=== PATIENT | female | born 2000 | race African-American/Black ===

== ENCOUNTER 2024-11-27 12:17 | Outpatient (CLI) | payer OTHER, SELFPAY ==
[2024-11-27 12:30] VITALS: BMI 36.7
[2024-11-27 12:31] VITALS: BP 126/79; PULSE 100
[2024-11-27 12:43] LABS: Glucose Urine UA Negative (Normal); Nitrate Urine Negative (Negative); Specific Gravity, Urine 1.015 (1.005-1.030)
[2024-11-27 12:48] LABS: Add Urine Microscopic? YES
[2024-11-27 12:49] LABS: Hematocrit 37.8 % (36-47); Hemoglobin 12.50 g/dL (11.27-16.99); Mean Corpuscular HGB Conc 33.1 g/dL (30-55); Mean Corpuscular Hemoglobin 27.5 pg (27-33); Mean Corpuscular Volume 83.3 fl (85-98); Nucleated Red Blood Cells % 0 %; Platelet Count 278 10^3/cmm (157-399); Red Blood Count 4.54 10^6/uL (3.85-5.65); White Blood Count 9.69 10^3/uL (3.29-11.43)
[2024-11-27 12:51] VITALS: BP 117/77; PULSE 79
[2024-11-27 13:01] LABS: UPRO/UCREAT Ratio 0.13 mg/mg CR
[2024-11-27 13:08] LABS: Alanine Aminotransferase 10 U/L (0-33); Albumin Level 3.3 g/dL (3.5-5.2); Alkaline Phosphatase 209 U/L (35-105); Anion Gap 15.8 (5-19); Aspartate Amino Transferase 15 U/L (0-32); Blood Urea Nitrogen 4 mg/dL (6-20); Calcium 9.0 mg/dL (8.5-10.5); Carbon Dioxide 21 mmol/L (22-29); Chloride 102 mmol/L (98-107); Globulin 3.5 g/dL (1.3-4.6); Glucose 104 mg/dL (65-115); Osmolality Calculated 277 mOsm/kg (285-295); Potassium 3.8 mmol/L (3.5-5.1); Sodium 135 mmol/L (136-145); Total Protein 6.8 g/dL (6.6-8.7); Uric Acid 3.9 mg/dL (2.4-5.7)
[2024-11-27 13:11] VITALS: BP 121/73; PULSE 81
[2024-11-27 13:20] VITALS: BP 121/73; PULSE 81; RESP 15
== END 2024-11-27 13:25 | disposition home or self-care (01) ==
LOC: OPOB 12:21 → OBGYN 12:22
PROVIDERS: Visit Provider Family Medicine
DX: O13.9 Gestational [pregnancy-induced] hypertension without significant proteinuria, unspecified trimester (principal); Z3A.00 Weeks of gestation of pregnancy not specified
CPT/HCPCS: 59025; 80053; 81001; 82570; 84156; 84550; 85025; 99211

== ENCOUNTER 2024-12-16 05:49 | Inpatient (IN) | payer OTHER, MEDICAID, SELFPAY ==
[2024-12-16] VITALS (82 sets, daily range): BP systolic 75–169; BP diastolic 42–118; PULSE 52–123; RESP 16; TEMP 36.7–37.3; O2SAT 97–100; BMI 37.6
[2024-12-16] MEDS: ampicillin 2,000 MG in sodium chloride 0.9% (plus) 50 ML 100 MG IV (06:08)
[2024-12-16] MEDS: ondansetron 2 mg/ML SDV 2 mL 4 MG IVP ×2 (06:18→13:49)
[2024-12-16 06:25] LABS: Hematocrit 40.1 % (36-47); Hemoglobin 13.50 g/dL (11.27-16.99); Mean Corpuscular HGB Conc 33.7 g/dL (30-55); Mean Corpuscular Hemoglobin 27.9 pg (27-33); Mean Corpuscular Volume 82.9 fl (85-98); Nucleated Red Blood Cells % 0 %; Platelet Count 285 10^3/cmm (157-399); Red Blood Count 4.84 10^6/uL (3.85-5.65); White Blood Count 12.44 10^3/uL (3.29-11.43)
--- NOTE | 2024-12-16 07:00 | ANES.PREANE2 ---
Pre-Anesthetic Assessment Height/Weight: Height 1.55 m Weight 90.407 kg Pulse BP Pulse Ox O2 Del Method 76 157/78 100 Room Air 12/16/24 07:11 12/16/24 07:11 12/16/24 07:09 12/16/24 06:25 Preop Diagnosis: labor pain epidural Familial anesthetic complications: none Was Beta Kristin taken within 24 hours: N/A Was Clonidine taken within 24 hours: N/A Social No alcohol and No tobacco Exam alert and oriented x 3 Airway Submandibular: within normal limits Cervical ROM: within normal limits Mallampati: Class II Dentition: full History/ROS No significant history except as noted Anesthetic Plan ASA status: 2 Anesthesia: Anesthesia Evaluation and Regional (specify below) Risk of > 500 ml blood loss (7ml/kg in children): Yes, adequate IV access and fluids planned Medications/Allergies Home Medications ?Medication ?Instructions ?Recorded ?Confirmed ?Last Taken ?Type 1 active tab PO 1XD 11/27/24 12/16/24 12/15/24 History Allergies Allergy/AdvReac Type Severity Reaction Status Date / Time pecan nut Allergy ALGY-Swell Verified 12/16/24 06:36 Lip/Tongue/Throat Current Medications Generic Name Dose Route Start Last Admin Trade Name Freq PRN Reason Stop Dose Admin Lactated Ringer's 1,000 mls @ 999 mls/hr 12/16/24 05:54 12/16/24 06:08 Lactated Ringers IV 999 mls/hr .Q1H1M PRN Administration See label comments Ondansetron HCl 4 mg 12/16/24 05:49 12/16/24 06:18 Ondansetron 2 Mg/Ml Sdv 2 Ml IVP 4 mg Q4H PRN Administration NAUSEA AND VOMITING Data Anesthesia 12/16/24 06:11 Short CBC 12/16/24 Range/Units 06:11 WBC 12.44 H (3.29-11.43) 10^3/uL Hgb 13.50 (11.27-16.99) g/dL Hct 40.1 (36-47) % MCV 82.9 L (85-98) fl Plt Count 285 (157-399) 10^3/cmm Neut % (Auto) 71.3 % Neut # (Auto) 8.87 H (1.8-7.7) 10^3/uL Blood Bank 12/16/24 06:11 Blood Type AB Positive Rho(D) Type Rh positive Antibody Screen Negative
[2024-12-16] MEDS: ROPivacaine syringe 100 MG/50 ML SYRINGE 10 MG EPIDURAL ×5 (07:16→18:19)
--- NOTE | 2024-12-16 07:18 | ANES.PROC ---
Anesthesia Procedures Procedure/Date: 12/16/24 Epidural: Time Out Performed: Yes Consents Signed: Procedure Consent Consent: from patient, risks and benefits reviewed and patient agrees to proceed Lumbar Level: L3-L4 Epidural position: sitting Epidural procedure: sterile prep of area, 1% lidocaine to numb the area, 18 g needle, negative for paresthesia passed, test dose given, 1.5% xylocaine 1:200k epi, placed PCEA, no systemic response, sterile dressing applied, L.U.D. no apparent complications and 0.2% Ropiavacaine @ mls/hr (13) Additional Comments: AMINTA at4, taped at 12. negative heme/CSF with aspiration.
--- NOTE | 2024-12-16 07:35 | ANES.PROC ---
Anesthesia Procedures Procedure/Date: 12/16/24 bolus of 5ml 2% PF lido and 100mcg fentanyl. pt states pain relief after bolus. 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 10mg ephedrine given IV, BP improved.
[2024-12-16] MEDS: ampicillin 1,000 MG in sodium chloride 0.9% (plus) 50 ML 100 MG IV ×3 (10:13→18:15)
--- NOTE | 2024-12-16 12:11 | PM.OPHPUD ---
Labor & Delivery H&P Update Date of Procedure: December 16, 2024 Date H&P Performed: 12/11/24 Admission Diagnosis: IUP at 39 weeks 2 days gestation in active labor BS positive Preop diagnosis: labor pain Planned procedure: Expectant management of labor and delivery
--- NOTE | 2024-12-16 14:40 | P.ANES_ITS ---
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 10ml 2% lido given and 100mcg fentanyl given at 1400. 5ml 0.25%bupi given at 1430. patient sitting straight up and states adequate pain relief.
--- OUTSIDE RECORDS SUMMARY | 2024-12-16 19:57 | XMS_ITS | Data Portability ---
Author Organization [facility], [facility], [facility] Address [address] [address] [place] [address] Assessment No assessment recorded. Plan of Treatment Reminders Order Date Submit Date Provider Last Modified By Organization Details Last Modified Time Details Appointments BarrROB 2024 09:15A M Adelina Almazan MD Not available Not available Not available Lab None recorded . Referral None recorded . Procedures None recorded . Surgeries None recorded . Imaging None recorded . Medication Orders None recorded . Patient TargetsNo targets recorded. Patient InstructionsNo instructions recorded. Reason for Referral None Reported. Results Created Date Observation Date Name Description Value Unit Range Abnormal Flag Note LastModifiedBy Organization Detail LastModifiedTime Result Notes None recorded. Problems Name Problem SNOMED Code Status Onset Date Resolution Date Notes Provider Name and Address Organization Details Recorded Time [id number] Active 025 JOSE BALLARD [facility], [facility] 5 11:34:13 Problem Notes None recorded. Medical Equipment None Reported. Allergies No known drug allergies Medications Name Sig Start Date Stop Date Status Note LastModified by Organization Details LastModified Time amoxicill in 875 mg tablet two times daily 10/30 completed Recorded 7 12:57PM by RUBY Del Valle, Office Visit; Refill Quantity: 0; Not Available Not Available Not Available iron active Not Available Not Availa ble Not Available Vitamin D active Not Available Not Mary ilable Not Available active Not Available Not Avai lable Not Available Mucinex D 2 times per day as needed 10/[address] Franz DOC/LCrit es, [facility]; Recorded 12:58PM by RUBY Del Valle, Office Visit; Refill Quantity: 0; Not Available Not Available Not Available Vitals Date Recorded Body weight Body mass index (BMI) Body height Body temperature Oxygen saturation Oxygen saturation in Arterial blood by Pulse oximetry Heart rate Systolic And Diastolic Provider Name and Address Organization Details Last Updated DateTime 5 18312.2 9 g 37.4 kg/m2 154.94 cm 97.3 [degF] 95 % 95 % 115 /min 114/64 mm[Hg] [facility] 5 11:45:01 Date Recorded Body height Body mass index (BMI) Body weight Body temperature Oxygen saturation Oxygen saturation in Arterial blood by Pulse oximetry Heart rate Systolic And Diastolic Provider Name and Address Organization Details Last Updated DateTime 5 154.94 cm 38.4 kg/m2 45586.2 5 g 97 [degF] 98 % 98 % 128 /min 120/80 mm[Hg] [facility] 5 12:20:51 Date Recorded Systolic And Diastolic Provider Name and Address Organization Details Last Updated DateTime 11/27/2024 140/70 mm[Hg] [facility] 11/27/2024 12:32:12 Date Recorded Body height Body mass index (BMI) Body weight Body temperature Oxygen saturation Oxygen saturation in Arterial blood by Pulse oximetry Heart rate Systolic And Diastolic Provider Name and Address Organization Details Last Updated DateTime 5 154.94 cm 37.4 kg/m2 71454.2 9 g 97.4 [degF] 98 % 98 % 106 /min 160/84 mm[Hg] [facility] 5 12:21:16 Date Recorded Body height Body mass index (BMI) Body weight Body temperature Oxygen saturation Oxygen saturation in Arterial blood by Pulse oximetry Heart rate Systolic And Diastolic Systolic And Diastolic Provider Name and Address Organization Details Last Updated DateTime 5 154.94 cm 37.8 kg/m2 79521.4 7 g 97.9 [degF] 98 % 98 % 105 /min 140/90 mm[Hg] 120/80 mm[Hg] JENSEN THOMAS [facility] 10:40:41 Date Recorded Body height Body mass index (BMI) Body weight Body temperature Oxygen saturation Oxygen saturation in Arterial blood by Pulse oximetry Heart rate Systolic And Diastolic Provider Name and Address Organization Details Last Updated DateTime 154.94 cm 38 kg/m2 95848.0 7 g 97.7 [degF] 96 % 96 % 92 /min 130/80 mm[Hg] JENSEN PERALTA THOMAS [facility] 10:45:38 Social History Question Answer Notes LastModified by [employer] Details LastModified Time Tobacco Smoking Status Never Smoker JOSE temple [facility] 10/30/2024 11:39:27 What Was The Date Of Your Most Recent Tobacco Screening? 10/30/2024 [email or web address] Information not available 10/30/2024 Sex: Unknown Functional Status Question Answer Note LastModified by [employer] Details LastModified Time Do you use any illicit or recreational drugs? No [email or web address] Information not available 10/30/2024 What is your level of alcohol consumption? None Information not available 10/30/2024 Mental Status None recorded. Family History Relationship Description Onset Age of this Age Resolved Age Notes LastModified by Organization Details LastModified Time Father No current problems or disability Not available 10/30 11:38:45 Mother No current problems or disability [email or web address] Not available 10/30 11:38:45 Medical History Condition Response Coronary Artery Disease N Other N Gout N Kidney Stones N Blood Diseases N Hyperthyroidism N Breast Cancer N Blood Transfusion N Depression N Hypothyroidism N Lung Disease N COPD N Developmental or Behavioral Disorders N Defects or Inherited Disease N Breast Problem N Difficulty Swallowing N Anesthesia Complications N Anxiety Disorder N Meniere's disease N Muscle, Joint, or Bone Problems N Vision or Eye Problems N Arthritis N Infertility N Polyps N Cancer N Stroke N Varicosities N Endometriosis N Bladder or Kidney Problems N High Cholesterol N Liver Disease N Fibromyalgia N Headaches N Kidney Disease N Allergies/Hayfever N Heart Problems N Ear or Hearing Problems N Hospitalizations N Thyroid Problems N GI Problems N ADD/ADHD N Skin Problems N Eating Disorder N Anemia N Constipation N Mental Illness N Ovarian Cancer N Diabetes N Bedwetting N Seizures/Epilepsy N Tuberculosis N Eczema N Diverticulitis N Abuse/Domestic Violence N Asthma N Reflux/GERD N Hepatitis N Heart Disease N Pulmonary Embolism N Pre-Eclampsia N Hypertension N Chronic Ear Infections N Osteoporosis N Chicken Pox N Autism Spectrum Disorder (ASD) N Thrombophilias N Gynecological HistoryNo gynecological history recorded. Obstetrics History GPAL:G 1 P 0 0 0 0 Immunizations Vaccine Type Date Status Note Provider Nam e and Address Organization Details Recorded Time Tdap 11/13/2024 completed JOSE temple [facility] 11/13/2024 13:09:51 RSV, bivalent, protein subunit RSVpreF, diluent reconstituted, 0.5 mL, PF 11/13/2024 completed JOSE temple [facility] 11/13/2024 13:09:51 Past Encounters Encounter ID Performer Location Encounter Start Date Encounter Closed Date Diagnosis/Indication Diagnosis SNOMED-CT Code Diagnosis ICD10 Code Diagnosis Note [id number] Adelina Almazan MD [facility] ([facility]) [address] [place] [address] [id number] 10/30/2024 11:24:24 10/30/2024 17:10:04 Gestation period, 32 weeks 7179002 Z3A.32 Normal 0544718 [address] reptococcus carrier 9143063162 103 Z22.330 O99.820 Discussed with the patient that she will require antibiotic s during labor [id number] Adelina Almazan MD [facility] ([facility]) [address] [place] [phone] 5 11/13/2024 12:14:33 11/14/2024 13:24:25 Normal 55932769 Z34.[address] reptococcus carrier 8333147727 103 Z22.330 O99.820 Discussed with the patient that she will require antibiotic s during labor Gestation period, 34 weeks 74784821 Z3A.34 [id number] Adelina Almazan MD [facility] ([facility]) [address] [place] [phone] 11/27/2024 12:11:43 12/10/2024 09:14:58 Gestation period, 36 weeks 56323349 Z3A.36 Primigravida 173941356 Z 34.03 [id number] Adelina Almazan MD [facility] ([facility]) [address] [place] [address] [phone] 12/04/2024 10:17:40 12/05/2024 13:11:08 Gestation period, 37 weeks 38084113 Z3A.37 Primigravida 038535466 Z 34.03 Health Concerns Section Related Observation LastModified by Organization Detai ls LastModified Time None Recorded Concern Status LastModified by Organization Details LastModified Time None Recorded Advance Directives Directive None Recorded Payers Insurance Date Sequence Insurance Name Policy Number Policy Piper Covered Member ID Piper Member ID Guarantor Name 12/16/2024 1 NICHOLAS Pulido [id number] Collin Pulido Notes Date Note Type Note Provider Name and Address Organization Details Recorded Time 5 text/html ob routineReported by PatientHPIFor associated symptoms, patient reportsno abdominal pain,no cramping,no contractions,normal movement,no bleeding,no dysuria,no frequency,no nausea,no emesis,no constipation,no visual changes,no headache, andno dizziness. Adelina Almazan MD [address] [place] [address], [phone], [facility], LM[facility]key 10/30/2024 13:21:53 5 text/html ob routineReported by PatientHPIFor associated symptoms, patient reportsabdominal pain,cramping,contracti ons,bleeding,nausea,reg ma, andheadachebut reportsno emesis,no constipation, andno dizziness.ROS as noted in the HPI Adelina Almazan MD [address] [place] [address], [phone], [facility], L[facility]. 11/13/2024 12:52:21 5 text/html jr ob routineReported by PatientHPIFor associated symptoms, patient reportscrampingbut reportsno abdominal pain,no contractions,normal movement,no bleeding,no nausea,no emesis,no constipation,no visual changes,no headache, andno dizziness. Adelina Almazan MD [address] [place] [address], [phone], [facility], LReid. 12/09/2024 12:41:07 5 text/html jr ob routineReported by PatientHPIFor associated symptoms, patient reportsabdominal pain,cramping,contracti ons,nausea, andedemabut reportsnormal movement,no bleeding,no emesis,no headache, andno dizziness.ROS as noted in the HPI Adelina Almazan MD [address] [place] [address], [phone], [facility], LReid. 12/04/2024 11:12:47 5 text/html jr ob routineReported by PatientHPIFor associated symptoms, patient reportsabdominal pain,cramping, andcontractionsbut reportsnormal movement,no bleeding,no headache, andno dizziness.ROS as noted in the HPI Not Available Not Available Not Available OBGyn Episode Ob Episode Information Episode Created Date Number of Fetuses Patient Bloodtype Patient rh Status Prepregnancy Weight lbs Domestic Partner Domestic Partner Phone Father Name Director Of Perioperative Services Status 10/31/19 25 1 AB Positive OPEN Fetus Data First Name Last Name Admitted to NICU Weight (g) Sex Living Outcome Pediatric Complications Fetus ID Race Codes Race Delivery Type [id number] Tone Calculation Initial Tone Date Initial Exam Date Initial Exam Provider Initial Ultrasound Date Last Menstrual Period Date Ultra Sound Weeks Gestation 10/30/2024 05/10/2024 03/17/2024 7 Eighteen To Twenty Week Otne Update Ultra Sound Date Fundal Height At Umbil Quickening Date Ultra Sound Latest Weeks Gestation Final Tone Confirmed By Final Tone Confirmed Date Final Tone Date Ultra Sound Latest Days Gestation 0 [email or web address] 10/30/2024 12/22/19 25 0 Pre-deja Flowsheet Flowsheet Date 10/30/2024 Barakat Score Blood Edema Fundus Height Fundus Units Glucose Ketones Leukocytes Nitrite Labor Signs Protein Cervic Dilation Cervic Effacement Cervic Station 33 cm trace trace Negative neg Type Weight in lbs Pre/Post Dialysis Refused With clothes 198.427670440054 BP Diastolic BP Location Tested BP Systolic BP Type 64 L arm 114 sitting Fetus Heart Rate Present A 160 Fetus Movement A Yes Comments Dr.Barr randolph, baby girl Mary, wants control after baby is born Flowsheet Date 11/13/2024 Barakat Score Blood Edema Fundus Height Fundus Units Glucose Ketones Leukocytes Nitrite Labor Signs Protein Cervic Dilation Cervic Effacement Cervic Station 36 cm 4+ trace trace Type Weight in lbs Pre/Post Dialysis Refused Weight 203.510453231300 BP Diastolic BP Location Tested BP Systolic BP Type 80 120 Fetus Heart Rate Present A 155 Fetus Movement A Yes Comments Pt. wiped 2 days ago and had some very light pink spotting. None since. Flowsheet Date 11/27/2024 Barakat Score Blood Edema Fundus Height Fundus Units Glucose Ketones Leukocytes Nitrite Labor Signs Protein Cervic Dilation Cervic Effacement Cervic Station 37 cm trace none Negative neg Type Weight in lbs Pre/Post Dialysis Refused With clothes 198.189405202552 BP Diastolic BP Location Tested BP Systolic BP Type 84 R arm 160 sitting 70 L arm 140 sitting Fetus Heart Rate Present A 150 Fetus Movement A Yes Comments pt sent to L&D for further e aurora of BP. GBS positive urine. Pt wants to see if we can set an induction date. Flowsheet Date 12/04/2024 Barakat Score Blood Edema Fundus Height Fundus Units Glucose Ketones Leukocytes Nitrite Labor Signs Protein Cervic Dilation Cervic Effacement Cervic Station 39 cm none trace Negative trace Type Weight in lbs Pre/Post Dialysis Refused Weight 200.127216899238 BP Diastolic BP Location Tested BP Systolic BP Type 90 140 80 L arm 120 sitting Fetus Heart Rate Present A 150 Fetus Movement A Yes Comments [employer] signed today. Flowsheet Date 12/11/2024 Barakat Score Blood Edema Fundus Height Fundus Units Glucose Ketones Leukocytes Nitrite Labor Signs Protein Cervic Dilation Cervic Effacement Cervic Station 40 cm none 2+ Negative trace Type Weight in lbs Pre/Post Dialysis Refused Weight 201.730616263776 BP Diastolic BP Location Tested BP Systolic BP Type 80 130 Fetus Heart Rate Present A 150 Fetus Movement A Yes Comments Pt. is undressed and wants t o be checked. Menstrual History Last Menstrual Date Menses Monthly On Bcp Conception Prior Menses Frequency Hcg Plus Date Menarche Onset Age 1003/17/2024 Genetic Screening And Infection History Question Response Note Patient's Age Will Be 35 Years Or Older At Estim ated Date of Delivery false Thalassemia (Amharic, Irish, Mediterranean, Or Background): MCV < 80 false Neural Tube Defect (Meningomyelocele, Spina Bifi da, Or Anencephaly) false Congenital Heart Defect false Down Syndrome false Jairon-Sachs (eg, Lutheran, Cajun, Bulgarian-Attica) f alse Clara Disease false Sickle Cell Disease Or Trait () false Hemophilia Or Other Blood Disorders false Muscular Dystrophy false Cystic Fibrosis false [place] false Intellectual Disability/Autism false If Yes, Was Person Tested For Fragile X? false Other Inherited Genetic Or Chromosomal Disorder false Maternal Metabolic Disorder (eg, Type 1 Diabetes , PKU) false Patient Or Baby's Father Had A Child With Defects Not Listed Above false Recurrent Loss, Or A Stillbirth false Medications (including Suppl ements, Vitamins, Herbs, OTC Drugs), Illicit/Recreational Drugs, Alcohol false If Yes, Agent(s) And Strength/Dosage false Any Other Genetic History false Live With Someone With TB Or Exposed To TB false Patient Or Partner Has History Of Genital Herpes false Rash Or Viral Illness Since Last Menstrual Perio d false History Of STD, Gonorrhea, Chlamydia, HPV, Syphi lis false Other Infection History false History of HIV false History of Hepatitis false Prior GBS-infected child false Hemoglobinopathy Or Carrier false Other Structural Defect false Recent Travel History Outside of Country false Mental Retardation/Autism false Delivery Information Delivery Date Delivery Type Labor Anesthesia Weeks Gestation Incision Type Labor Labor Length Hrs Delivered By Post Complications Tubal Sterilization Discharge Date Comments Discharge Information Feeding Method Contraceptive Method Maternal HG B and HCT Levels
--- NOTE | 2024-12-16 20:13 | P.PCNOB_ITS ---
Delivery Note: Date of delivery: December 16, 2024 Procedure: Normal spontaneous vaginal delivery Estimated blood loss (mL): 250 Pre-Delivery Course: The patient began her care in [facility] and transferred to [facility] around 34 weeks gestation. There were no complications during the labs: Blood type AB+, antibody negative, hepatitis B nonreactive, hepatitis C nonreactive, HIV nonreactive, RPR nonreactive, rubella immune, she passed her glucose tolerance test, she was GBS positive urine. Delivery: This is a 24-year-old G1, P0 at 39 weeks 2 days gestation who presented to labor and delivery in active labor. She was known to be GBS positive and was started on ampicillin protocol. She received 3 doses of ampicillin prior to delivery. She received an epidural for pain management. When she was completely dilated she underwent artificial rupture of membranes with clear fluid. Rupture of membranes was approximately 1.5 hours prior to delivery. She only had to push through about 3 contractions to have a normal spontaneous vaginal delivery of a viable female weight 3620 g, 8 pounds 0 ounces, Apgars 9 and 9 over an intact perineum. The was suctioned at delivery and placed on the mother's chest. The cord was clamped and cut. The placenta was delivered grossly intact and normal to inspection. There was a small second-degree perineal laceration that was sutured using 3-0 chromic. Mother and infant were doing well after delivery. A&P PDMP PDMP Reviewed: Not Reviewed Coding Level of Care Code Acute Code for Chg Fwd
[2024-12-16] MEDS: HYDROcodone-acetaminophen 5-325 mg Tablet PO (20:59)
[2024-12-16] MEDS: benzocaine-menthol 78 gm Canister 1 SPRAY TOPICAL (23:02)
[2024-12-17 02:49] VITALS: BP 108/67; PULSE 67; RESP 18; TEMP 36.9; O2SAT 98
[2024-12-17] MEDS: HYDROcodone-acetaminophen 5-325 mg Tablet PO ×2 (03:03→16:12)
[2024-12-17 06:17] VITALS: BP 105/68; PULSE 68; RESP 18; TEMP 36.8; O2SAT 99
[2024-12-17] MEDS: PRENATAL VIT NO.130/IRON/FOLIC 1 EACH TABLET PO (08:40)
[2024-12-17 09:33] VITALS: BP 125/73; PULSE 80; RESP 16; TEMP 36.6; TEMP 36.7; O2SAT 100
[2024-12-17 09:34] LABS: Hematocrit 35.7 % (36-47); Hemoglobin 11.90 g/dL (11.27-16.99); Mean Corpuscular HGB Conc 33.3 g/dL (30-55); Mean Corpuscular Hemoglobin 27.5 pg (27-33); Mean Corpuscular Volume 82.4 fl (85-98); Platelet Count 241 10^3/cmm (157-399); Red Blood Count 4.33 10^6/uL (3.85-5.65); White Blood Count 15.89 10^3/uL (3.29-11.43)
[2024-12-17 16:15] VITALS: BP 107/53; PULSE 62; RESP 16; TEMP 36.7; O2SAT 98
--- NOTE | 2024-12-17 17:08 | P.PN_ITS ---
Subjective 2 Subjective: She had upper neck head and back pain today that was helped with tramadol. She has average vaginal bleeding. Vitals/I&O/Wt Last Vital Signs Temp 98.0 F 12/17/24 09:33 Pulse 80 12/17/24 09:33 Resp 16 12/17/24 09:33 BP 125/73 12/17/24 09:33 Pulse Ox 100 12/17/24 09:33 O2 Del Method Room Air 12/17/24 09:33 Weight last 48 hrs Weight 90.407 kg Physical Exam 2 Narrative: Alert and oriented, resting in bed, heart regular rate and rhythm, lungs clear to auscultation bilaterally, abdomen is soft and nontender, fundus is firm, extremities have trace edema but no calf tenderness Urinary Catheter Management: Larsen Latex: Cath Placed During This Visit: yes, but has since been removed by the nurse Reason for Continuing Indwelling Catheter: Decision to DC Catheter Urinary Catheter Date of Insertion: 12/16/24 Urinary Catheter Time of Insertion: 09:30 Date Urinary Catheter Removed: 12/16/24 Time Urinary Catheter Discontinued: 19:35 Data 12/17/24 09:15 A&P Assessment and plan 1. Normal spontaneous vaginal delivery: Continue to work on breast-feeding. Likely discharge home tomorrow if doing well PDMP PDMP Reviewed: Not Reviewed Attestations 2 Medical Necessity Statement*: Routine care Coding Level of Care Code Acute Code for Chg Fwd Diagnoses Normal spontaneous vaginal delivery O80
--- NOTE | 2024-12-17 18:11 | ANE.PACU2 ---
Inpatient post-anesthesia follow up: Airway intact: Yes Vital signs: Temperature 98.0 F Pulse Rate 99 Respiratory Rate 16 Blood Pressure 143/89 Pulse Oximetry 99 Oxygen Delivery Me thod Room Air Oxygen Flow Rate Fraction of Inspir ed Oxygen Hydration adequate: Yes Nausea and vomiting: No Pain level: 1 Mental status: Baseline Epidural Start/End: Epidural Start Date: 12/16/24 Epidural Start Time: 07:00 Epidural End Date: 12/16/24 Epidural End Time: 20:13
[2024-12-17 22:00] VITALS: BP 124/72; PULSE 64; RESP 18; TEMP 36.9
[2024-12-18 04:00] VITALS: BP 135/83; PULSE 75; RESP 16; TEMP 36.6; O2SAT 98
[2024-12-18 09:40] VITALS: BP 135/86; PULSE 65; RESP 16; TEMP 37.1; O2SAT 99
[2024-12-18] MEDS: PRENATAL VIT NO.130/IRON/FOLIC 1 EACH TABLET PO (09:45)
--- NOTE | 2024-12-18 12:50 | PM.DCS ---
Discharge Providers Date of Admission: 12/16/24 05:49 Date of Discharge: December 18, 2024 Attending Provider at Admission: Adelina Almazan MD Attending Provider at Discharge: Adelina Almazan MD Diagnoses at Discharge Discharge Diagnosis 1. Normal spontaneous vaginal delivery: Reason for Visit Reason for Visit: Ctx. Hospital Course Hospital Course This is a 24-year-old G1 now P1 who was admitted at 39 weeks 2 days gestation in active labor. She had a normal spontaneous vaginal delivery of a viable female infant. Mother and infant have done well after delivery. Mother is ambulating, tolerating a regular diet, has decreased vaginal bleeding. She does complain of some back pain. . Her back pain seems to be musculoskeletal she was advised in heat, stretching, massage. Physical Exam Narrative: Alert and oriented, walking around the room, heart regular rate and rhythm, lungs clear to auscultation bilaterally, abdomen is soft and nontender, fundus is firm, extremities have 1+ edema but no calf tenderness Urinary Catheter Management: Larsen Latex: Cath Placed During This Visit: yes, but has since been removed by the nurse Reason for Continuing Indwelling Catheter: Decision to DC Catheter Urinary Catheter Date of Insertion: 12/16/24 Urinary Catheter Time of Insertion: 09:30 Date Urinary Catheter Removed: 12/16/24 Time Urinary Catheter Discontinued: 19:35 Discharge Data Studies Completed and Pending Laboratory Results WBC 15.89 10^3/uL (3.29-11.43) H 12/17/24 09:15 RBC 4.33 10^6/uL (3.85-5.65) 12/17/24 09:15 Hgb 11.90 g/dL (11.27-16.99) 12/17/24 09:15 Hct 35.7 % (36-47) L 12/17/24 09:15 MCV 82.4 fl (85-98) L 12/17/24 09:15 MCH 27.5 pg (27-33) 12/17/24 09:15 MCHC 33.3 g/dL (30-55) 12/17/24 09:15 RDW 15.3 % (12.1-15.1) H 12/17/24 09:15 Plt Count 241 10^3/cmm (157-399) 12/17/24 09:15 MPV 10.2 fL (7.4-10.4) 12/17/24 09:15 Neut % (Auto) 71.3 % 12/16/24 06:11 Lymph % (Auto) 21.1 % 12/16/24 06:11 [place] % (Auto) 6.3 % 12/16/24 06:11 Eos % (Auto) 0.4 % 12/16/24 06:11 Baso % (Auto) 0.4 % 12/16/24 06:11 Neut # (Auto) 8.87 10^3/uL (1.8-7.7) H 12/16/24 06:11 Lymph # (Auto) 2.6 10^3/uL (0.8-4.8) 12/16/24 06:11 [place] # (Auto) 0.8 10^3/uL (0.2-0.9) 12/16/24 06:11 Eos # (Auto) 0.1 10^3/uL (0.0-0.8) 12/16/24 06:11 Baso # (Auto) 0.1 10^3/uL (0.0-0.1) 12/16/24 06:11 Nucleated RBC % (auto) 0 % 12/16/24 06:11 Nucleated RBCs # 0.0 /100WBC 12/16/24 06:11 Blood Type AB Positive 12/16/24 06:11 Rho(D) Type Rh positive 12/16/24 06:11 Antibody Screen Negative 12/16/24 06:11 Vitals Last Vital Signs Temp 98.8 F 12/18/24 09:40 Pulse 65 12/18/24 09:40 Resp 16 12/18/24 09:40 BP 135/86 12/18/24 09:40 Pulse Ox 99 12/18/24 09:40 O2 Del Method Room Air 12/18/24 09:40 Discharge Plan Discharge Patient Disposition: Home Condition: Stable Prescriptions: New ibuprofen 800 mg Tablet 800 mg PO TID PRN (Reason: Abdominal Discomfort) Qty: 30 0RF cyclobenzaprine 10 mg tablet 10 mg PO BID PRN (Reason: muscle spasm) Qty: 20 0RF Continued 1 active tab PO 1XD Discharge Order = DC NOW: Discharge Order (Routine); Ordered 12/18/24 Ordered By: Adelina Almazan Referrals: Adelina Almazan MD [Physician, Family Practice] - 1 month Discharge Diet: Usual diet Discharge Activity: Limit activity as instructed Patient Instructions: Opioid Safety, Patient Portal & Carly Instructions Activity Restrictions/Additional Instructions: Nothing per vagina for 6 weeks. Discharge Attestations Time Spent in Discharge Care*: less than 30 min Quality Metrics Clinical Quality Measures [ No reported AMI, CVA or VTE this stay] Coding Level of Care Code Acute Code for Chg Fwd Diagnoses Normal spontaneous vaginal delivery O80
[2024-12-18] MEDS: HYDROcodone-acetaminophen 5-325 mg Tablet PO (15:32)
[2024-12-18] MEDS: benzocaine-menthol 78 gm Canister 1 SPRAY TOPICAL (15:32)
[2024-12-18 15:35] VITALS: BP 143/89; PULSE 99; RESP 16; TEMP 36.7; O2SAT 99
== END 2024-12-18 15:50 | disposition home or self-care (01) | DRG 807 ==
LOC: OBGYN 05:54
PROVIDERS: Admitting Provider Family Medicine; Visit Provider Family Medicine
DX: O99.824 Streptococcus B carrier state complicating childbirth (principal); Z37.0 Single live birth; O70.1 Second degree perineal laceration during delivery; Z3A.39 39 weeks gestation of pregnancy
CPT/HCPCS: 36415; 51702; 59025; 59409; 85025; 85027; 86850; 86900; 96374; 96376; 99211; J0290; J2405; J2795; J3010; J3490; J7030; J7120; J7121; J9999